=== PATIENT | female | born 1990 | race Caucasian/White ===

== ENCOUNTER 2018-01-26 01:55 | Inpatient (IN) | payer OTHER ==
[2018-01-26] MEDS ORDERED: Misoprostol 100 MCG Tab VAG PRN (07:22)
[2018-01-26] MEDS ORDERED: Nalbuphine 20 MG/ML 1 ML Syringe IVPUSH PRN (07:22)
[2018-01-26] MEDS ORDERED: Sodium Chloride 0.9% 10 ML Syringe FLUSH PRN (07:22)
[2018-01-26] MEDS ORDERED: Ondansetron 4 MG/2 ML SDV IVPUSH PRN (07:22)
[2018-01-26] MEDS ORDERED: Oxytocin/Lactated Ringers 10 UNIT/1,000 ML BAG IV SCH ×2 (07:30)
[2018-01-26] MEDS: Misoprostol 25 MCG (1/4 of 100 MCG) Tab ONE ×2 (07:36→11:27)
[2018-01-26] MEDS ORDERED: fentaNYL 100 MCG/2 ML SDV EPIDUR PRN (09:35)
[2018-01-26] MEDS ORDERED: Bupivacaine/fentaNYL/NS 100 ML Bag EPIDUR SCH (09:45)
[2018-01-26] MEDS ORDERED: Misoprostol 25 MCG (1/4 of 100 MCG) Tab ONE (11:24)
[2018-01-26] MEDS ORDERED: Misoprostol 25 MCG (1/4 of 100 MCG) Tab VAG PRN (11:32)
--- NOTE | 2018-01-26 11:50 | PCM.PREANE ---
Preanesthetic Assessment - Anesthesia/Transfusion/Family Hx Anesthesia History: Prior Anesthesia Without Reaction Family History of Anesthesia Reaction: No Transfusion History: No Prior Transfusion(s) - Review of Systems General: No Symptoms Pulmonary: No Symptoms Cardiovascular: No Symptoms Gastrointestinal: No Symptoms Neurological: No Symptoms Other: Reports: None - Physical Assessment Pulse: 76 O2 Sat by Pulse Oximetry: 97 Respiratory Rate: 18 Blood Pressure: 171/94 Temperature: 36.5 C Height: 1.65 m Weight: 72.575 kg ASA Class: 2 Mental Status: Alert & Oriented x3 Airway Class: Mallampati = 1 Dentition: Reports: Normal Dentition Thyro-Mental Finger Breadths: 3 Mouth Opening Finger Breadths: 3 ROM/Head Extension: Full Lungs: Clear to Auscultation, Normal Respiratory Effort Cardiovascular: Regular Rate, Regular Rhythm, No Murmurs - Lab Values: Laboratory Last Values WBC 11.99 K/mm3 (3.98-10.04) H 01/26/18 07:45 RBC 4.23 M/mm3 (3.98-5.22) 01/26/18 07:45 Hgb 12.6 gm/L (11.2-15.7) 01/26/18 07:45 Hct 37.1 % (34.1-44.9) 01/26/18 07:45 MCV 87.7 fl (79.4-94.8) 01/26/18 07:45 MCH 29.8 pg (25.6-32.2) 01/26/18 07:45 MCHC 34.0 g/dl (32.2-35.5) 01/26/18 07:45 RDW Std Deviation 43.5 fL (36.4-46.3) 01/26/18 07:45 Plt Count 135 K/mm3 (182-369) L 01/26/18 07:45 MPV 11.6 fl (9.4-12.3) 01/26/18 07:45 AST 23 U/L (15-37) 01/26/18 07:45 ALT 23 U/L (14-59) 01/26/18 07:45 Blood Type O POSITIVE 01/26/18 07:45 Gel Antibody Screen Negative 01/26/18 07:45 - Allergies Allergies/Adverse Reactions: Allergies Allergy/AdvReac Type Severity Reaction Status Date / Time No Known Allergies Allergy Verified 01/26/18 07:56 - Anesthesia Plan Pre-Op Medication Ordered: None - Acknowledgements Anesthesia Type Planned: Epidural Pt an Appropriate Candidate for the Planned Anesthesia: Yes Alternatives and Risks of Anesthesia Discussed w Pt/Guardian: Yes Pt/Guardian Understands and Agrees with Anesthesia Plan: Yes PreAnesthesia Questionnaire Gastrointestinal History: Reports: GERD PSYCHOLOGICAL OPERATIONS History: Reports: - SUBSTANCE USE Smoking Status *Q: Current Every Day Smoker Tobacco Use Within Last Twelve Months: Cigarettes Second Hand Smoke Exposure: No Recreational Drug Use History: No - HOME MEDS Home Medications: Home Meds Pnv No.95/Ferrous Fum/Folic AC [ Multivitamin Tablet] 1 tab PO DAILY [History] - CURRENT (IN HOUSE) MEDS Current Meds: Current Medications Ephedrine Sulfate (Ephedrine Sulfate) 5 mg IVPUSH ASDIRECTED PRN PRN Reason: HYPOTENTSION Fentanyl (Sublimaze) 100 mcg EPIDUR Q3H PRN PRN Reason: Pain Fentanyl/Bupivacaine HCl (Fentanyl/Bupivacaine/Ns 2 Mcg-0.125% 100 Ml) 100 ml EPIDUR ASDIRECTED KONSTANTIN Lactated Ringer's (Ringers, Lactated) 1,000 mls @ 40 mls/hr IV ASDIRECTED KONSTANTIN Oxytocin/Lactated Ringer's (Pitocin In Lr 10 Units/1,000 Ml) 10 unit in 1,000 mls @ 12 mls/hr IV TITRATE KONSTANTIN; Protocol Oxytocin/Lactated Ringer's (Pitocin In Lr 10 Units/1,000 Ml) 10 unit in 1,000 mls @ 500 mls/hr IV .CONTINUOUS KONSTANTIN Misoprostol (Cytotec) 25 mcg VAG Q4H PRN PRN Reason: cervical ripening Nalbuphine HCl (Nubain) 10 mg IVPUSH Q2H PRN PRN Reason: Pain (moderate 4-6) Ondansetron HCl (Zofran) 4 mg IVPUSH Q4H PRN PRN Reason: Nausea/Vomiting Sodium Chloride (Saline Flush) 10 ml FLUSH ASDIRECTED PRN PRN Reason: Keep Vein Open Discontinued Medications Misoprostol (Cytotec) 25 mcg VAG Q4H PRN PRN Reason: cervical ripening Misoprostol (Cytotec) Confirm Administered Dose 25 mcg .ROUTE .STK-MED ONE Stop: 01/26/18 07:35 Last Admin: 01/26/18 11:27 Dose: 25 mcg Misoprostol (Cytotec) Confirm Administered Dose 25 mcg .ROUTE .[facility] ONE Stop: 01/26/18 11:25
[2018-01-26] MEDS ORDERED: Magnesium Sulfate/Water 100 ML ONE (13:26)
[2018-01-26] MEDS ORDERED: Magnesium Sulfate/Water 50 ML ONE (13:26)
[2018-01-26] MEDS ORDERED: Calcium Gluconate 10% 1 GM/10 ML SDV IV PRN (13:30)
[2018-01-26] MEDS ORDERED: Magnesium Sulfate/Water 4 GM in Premix Bag 1 BAG IV ONE (13:30)
[2018-01-26] MEDS ORDERED: Magnesium Sulfate/Water 2 GM in Premix Bag 1 BAG IV ONE (13:30)
--- NOTE | 2018-01-26 13:38 | PCM.PNLD ---
Labor Progress Note - VS & Meds Vital Signs: Last Vital Signs Temp 36.5 C 01/26/18 11:50 Pulse 76 01/26/18 11:50 Resp 18 01/26/18 11:50 BP 171/94 H 01/26/18 11:50 Pulse Ox 97 01/26/18 11:50 Active Medications: Current Medications Calcium Gluconate (Calcium Gluconate) 1 gm IV ASDIRECTED PRN PRN Reason: respiratory distress Ephedrine Sulfate (Ephedrine Sulfate) 5 mg IVPUSH ASDIRECTED PRN PRN Reason: HYPOTENTSION Fentanyl (Sublimaze) 100 mcg EPIDUR Q3H PRN PRN Reason: Pain Fentanyl/Bupivacaine HCl (Fentanyl/Bupivacaine/Ns 2 Mcg-0.125% 100 Ml) 100 ml EPIDUR ASDIRECTED KONSTANTIN Lactated Ringer's (Ringers, Lactated) 1,000 mls @ 40 mls/hr IV ASDIRECTED KONSTANTIN Oxytocin/Lactated Ringer's (Pitocin In Lr 10 Units/1,000 Ml) 10 unit in 1,000 mls @ 12 mls/hr IV TITRATE KONSTANTIN; Protocol Oxytocin/Lactated Ringer's (Pitocin In Lr 10 Units/1,000 Ml) 10 unit in 1,000 mls @ 500 mls/hr IV .CONTINUOUS KONSTANTIN Magnesium Sulfate (Magnesium Sulfate 40 Gm In Water 1000 Ml) 40 gm in 1,000 mls @ 50 mls/hr IV ASDIRECTED KONSTANTIN Magnesium Sulfate 4 gm/ Premix 100 mls @ 300 mls/hr IV ONETIME ONE Stop: 01/26/18 13:49 Magnesium Sulfate 2 gm/ Premix 50 mls @ 300 mls/hr IV ONETIME ONE Stop: 01/26/18 13:39 Misoprostol (Cytotec) 25 mcg VAG Q4H PRN PRN Reason: cervical ripening Nalbuphine HCl (Nubain) 10 mg IVPUSH Q2H PRN PRN Reason: Pain (moderate 4-6) Ondansetron HCl (Zofran) 4 mg IVPUSH Q4H PRN PRN Reason: Nausea/Vomiting Sodium Chloride (Saline Flush) 10 ml FLUSH ASDIRECTED PRN PRN Reason: Keep Vein Open Discontinued Medications Magnesium Sulfate (Magnesium Sulfate 4 Gm In Water 100 Ml) Confirm Administered Dose 100 mls @ as directed .ROUTE .STK-MED ONE Stop: 01/26/18 13:27 Magnesium Sulfate (Magnesium Sulfate 2 Gm In Water 50 Ml) Confirm Administered Dose 50 mls @ as directed .ROUTE .STK-MED ONE Stop: 01/26/18 13:27 Misoprostol (Cytotec) 25 mcg VAG Q4H PRN PRN Reason: cervical ripening Misoprostol (Cytotec) Confirm Administered Dose 25 mcg .ROUTE .STK-MED ONE Stop: 01/26/18 07:35 Last Admin: 01/26/18 11:27 Dose: 25 mcg Misoprostol (Cytotec) Confirm Administered Dose 25 mcg .ROUTE .STK-MED ONE Stop: 01/26/18 11:25 Last Admin: 01/26/18 13:18 Dose: Not Given - Uterine Contractions Uterine Monitoring Mode: External [place] Contraction Intensity: Mild to Moderate - Monitoring Monitor Mode: External Ultrasound Heart Rate (FHR) Baseline: 130 Accelerations: Present, 15x15 Decelerations: None Strip Review: Category I - Labor Progress (Free Text) Labor Progress: Patient with more severe range BP's. Will start magnesium for preeclampsia with severe features. Possible need for additional anti-hypertensives depending upon response. 2nd cytotec dose placed around 1130. Urrutia bulb remains in place
[2018-01-26] MEDS: Lactated Ringers 1,000 ML IV SCH ×2 (13:41→23:30)
[2018-01-26] MEDS: Magnesium Sulfate/Water 40 GM/1,000 ML BAG IV SCH (14:20)
[2018-01-26] MEDS ORDERED: Labetalol 100 MG/20 ML MDV IVPUSH ONE (14:39)
[2018-01-26] MEDS ORDERED: Ampicillin 2 GM in Sodium Chloride 0.9% 100 ML IV ONE (16:11)
--- NOTE | 2018-01-26 17:15 | PCM.PNLD ---
Labor Progress Note - VS & Meds Vital Signs: Last Vital Signs Temp 36.5 C 01/26/18 11:50 Pulse 92 01/26/18 14:49 Resp 18 01/26/18 11:50 BP 160/106 H 01/26/18 14:49 Pulse Ox 97 01/26/18 11:50 Active Medications: Current Medications Calcium Gluconate (Calcium Gluconate) 1 gm IV ASDIRECTED PRN PRN Reason: respiratory distress Ephedrine Sulfate (Ephedrine Sulfate) 5 mg IVPUSH ASDIRECTED PRN PRN Reason: HYPOTENTSION Fentanyl (Sublimaze) 100 mcg EPIDUR Q3H PRN PRN Reason: Pain Fentanyl/Bupivacaine HCl (Fentanyl/Bupivacaine/Ns 2 Mcg-0.125% 100 Ml) 100 ml EPIDUR ASDIRECTED KONSTANTIN Lactated Ringer's (Ringers, Lactated) 1,000 mls @ 40 mls/hr IV ASDIRECTED KONSTANTIN Last Infusion: 01/26/18 17:01 Dose: 30 mls/hr Oxytocin/Lactated Ringer's (Pitocin In Lr 10 Units/1,000 Ml) 10 unit in 1,000 mls @ 12 mls/hr IV TITRATE KONSTANTIN; Protocol Last Titration: 01/26/18 17:01 Dose: 6 munits/min, 36 mls/hr Oxytocin/Lactated Ringer's (Pitocin In Lr 10 Units/1,000 Ml) 10 unit in 1,000 mls @ 500 mls/hr IV .CONTINUOUS KONSTANTIN Magnesium Sulfate (Magnesium Sulfate 40 Gm In Water 1000 Ml) 40 gm in 1,000 mls @ 50 mls/hr IV ASDIRECTED KONSTANTIN Last Admin: 01/26/18 14:20 Dose: 50 mls/hr Ampicillin Sodium 1 gm/ Sodium (Chloride) 100 mls @ 200 mls/hr IV Q4H KONSTANTIN Misoprostol (Cytotec) 25 mcg VAG Q4H PRN PRN Reason: cervical ripening Nalbuphine HCl (Nubain) 10 mg IVPUSH Q2H PRN PRN Reason: Pain (moderate 4-6) Ondansetron HCl (Zofran) 4 mg IVPUSH Q4H PRN PRN Reason: Nausea/Vomiting Sodium Chloride (Saline Flush) 10 ml FLUSH ASDIRECTED PRN PRN Reason: Keep Vein Open Discontinued Medications Magnesium Sulfate (Magnesium Sulfate 4 Gm In Water 100 Ml) Confirm Administered Dose 100 mls @ as directed .ROUTE .STK-MED ONE Stop: 01/26/18 13:27 Last Admin: 01/26/18 14:08 Dose: Not Given Magnesium Sulfate (Magnesium Sulfate 2 Gm In Water 50 Ml) Confirm Administered Dose 50 mls @ as directed .ROUTE .STK-MED ONE Stop: 01/26/18 13:27 Last Admin: 01/26/18 14:08 Dose: Not Given Magnesium Sulfate 4 gm/ Premix 100 mls @ 300 mls/hr IV ONETIME ONE Stop: 01/26/18 13:49 Last Admin: 01/26/18 13:44 Dose: 300 mls/hr Magnesium Sulfate 2 gm/ Premix 50 mls @ 300 mls/hr IV ONETIME ONE Stop: 01/26/18 13:39 Last Admin: 01/26/18 14:08 Dose: 300 mls/hr Ampicillin Sodium 2 gm/ Sodium (Chloride) 100 mls @ 200 mls/hr IV ONETIME ONE Stop: 01/26/18 16:40 Last Admin: 01/26/18 16:27 Dose: 200 mls/hr Labetalol HCl (Normodyne) 20 mg IVPUSH ONETIME ONE; Protocol Stop: 01/26/18 14:40 Last Admin: 01/26/18 14:49 Dose: 20 mg Misoprostol (Cytotec) 25 mcg VAG Q4H PRN PRN Reason: cervical ripening Misoprostol (Cytotec) Confirm Administered Dose 25 mcg .ROUTE .STK-MED ONE Stop: 01/26/18 07:35 Last Admin: 01/26/18 11:27 Dose: 25 mcg Misoprostol (Cytotec) Confirm Administered Dose 25 mcg .ROUTE .STK-MED ONE Stop: 01/26/18 11:25 Last Admin: 01/26/18 13:18 Dose: Not Given - Uterine Contractions Uterine Monitoring Mode: External [place] Contraction Intensity: Moderate Uterine Resting Tone: Soft - Monitoring Monitor Mode: External Ultrasound Heart Rate (FHR) Baseline: 130 Heart Rate (FHR) Variability: Moderate (6-25 bmp) Accelerations: Present, 15x15 Decelerations: None Strip Review: Category I - Vaginal Exam Dilation (cm): 3-4 Effacement (Percent): 80 Station: -2 Cervical Position: Midposition - Labor Progress (Free Text) Labor Progress: Patient doing well. Currently on 6 of pitocin. BP's have come down with a dose of IV labetalol given at 1450. Now upper mild range. Continue present management. Will AROM after 2nd dose of antibiotics which will be given at 1999.
--- NOTE | 2018-01-26 18:15 | PCM.LDHP ---
L&D History of Present Illness - General Date of Service: 01/26/18 Admit Problem/Dx: Patient Status Order with Admit Dx/Problem 01/26/18 07:22 Patient Status [ADT] Routine Admission Diagnosis/Problem Admission Diagnosis/Problem Pre-eclampsia Source of Information: Patient History Limitations: Reports: No Limitations - History of Present Illness Introduction:: Patient is a 27 y/o at 37 0/7 wks who presents for IOL for preeclampsia without severe features. Notes doing well. Good FM. No signs of labor. Denies headaches, vision changes, RUQ pain. - Related Data Allergies/Adverse Reactions: Allergies Allergy/AdvReac Type Severity Reaction Status Date / Time No Known Allergies Allergy Verified 01/26/18 07:56 Home Medications: Home Meds Pnv No.95/Ferrous Fum/Folic AC [ Multivitamin Tablet] 1 tab PO DAILY [History] Past Medical History Gastrointestinal History: Reports: GERD PATCHER History: Reports: : 2 Para: 0 LMP (Approximate): - Past Surgical History Musculoskeletal Surgical History: Reports: Other (See Below) (Cyst excision from arm) Social & Family History - Family History Family Medical History: Noncontributory - Tobacco Use Smoking Status *Q: Current Every Day Smoker Years of Tobacco use: 8 Packs/Tins Daily: 1 Second Hand Smoke Exposure: No - Caffeine Use Caffeine Use: Reports: Coffee, Soda - Alcohol Use Alcohol Use History: No - Recreational Drug Use Recreational Drug Use: No H&P Review of Systems - Review of Systems: Review Of Systems: See Below General: Reports: No Symptoms Pulmonary: Reports: No Symptoms Cardiovascular: Reports: No Symptoms Gastrointestinal: Reports: No Symptoms Genitourinary: Reports: No Symptoms Musculoskeletal: Reports: No Symptoms Psychiatric: Reports: No Symptoms Neurological: Reports: No Symptoms L&D Exam - Exam Exam: See Below - Vital Signs Vital Signs: Last Vital Signs Temp 36.5 C 01/26/18 11:50 Pulse 92 01/26/18 14:49 Resp 18 01/26/18 11:50 BP 160/106 H 01/26/18 14:49 Pulse Ox 97 01/26/18 11:50 Weight: 72.575 kg - OB Specific Contraction Intensity: Irritability Movement: Active Heart Tones: Present Heart Tones per Min: 135 Heart Rate (FHR) Variability: Moderate (6-25 bmp) Presentation: Vertex - Baez Score Baez Score Cervix Position: Posterior Baez Score Consistency: Medium Baez Score Effacement: 0-30% Baez Score Dilation: Closed Baez Score Infant's Station: -3 Baez Score Total: 1 - Exam General: Alert, Oriented, Cooperative Lungs: Clear to Auscultation, Normal Respiratory Effort Cardiovascular: Regular Rate, Regular Rhythm GI/Abdominal Exam: Soft, Non-Tender Genitourinary: Normal external exam Extremities: Normal Inspection Skin: Warm, Dry, Intact Neurological: Reflexes Equal Bilateral - Patient Data Lab Results Last 24 hrs: Laboratory Results - last 24 hr 01/26/18 01/26/18 01/26/18 Range/Units 07:45 07:45 07:45 WBC 11.99 H (3.98-10.04) K/mm3 RBC 4.23 (3.98-5.22) M/mm3 Hgb 12.6 (11.2-15.7) gm/L Hct 37.1 (34.1-44.9) % MCV 87.7 (79.4-94.8) fl MCH 29.8 (25.6-32.2) pg MCHC 34.0 (32.2-35.5) g/dl RDW Std Deviation 43.5 (36.4-46.3) fL Plt Count 135 L (182-369) K/mm3 MPV 11.6 (9.4-12.3) fl AST 23 (15-37) U/L ALT 23 (14-59) U/L RPR Non-reactive (NONREACTIVE) Blood Type Gel Antibody Screen 01/26/18 Range/Units 07:45 WBC (3.98-10.04) K/mm3 RBC (3.98-5.22) M/mm3 Hgb (11.2-15.7) gm/L Hct (34.1-44.9) % MCV (79.4-94.8) fl MCH (25.6-32.2) pg MCHC (32.2-35.5) g/dl RDW Std Deviation (36.4-46.3) fL Plt Count (182-369) K/mm3 MPV (9.4-12.3) fl AST (15-37) U/L ALT (14-59) U/L RPR (NONREACTIVE) Blood Type O POSITIVE Gel Antibody Screen Negative Result Diagrams: 01/26/18 07:45 - Problem List (1) 37 weeks gestation of SNOMED Code(s): 05582849 ICD Code: Z3A.37 - 37 WEEKS GESTATION OF Status: Acute Current Visit: Yes (2) Preeclampsia SNOMED Code(s): 943156182 ICD Code: O14.90 - UNSPECIFIED PRE-ECLAMPSIA, UNSPECIFIED TRIMESTER Status : Acute Current Visit: Yes Qualifiers: Trimester: third trimester Qualified Code(s): O14.93 - Unspecified pre- eclampsia, third trimester (3) GBS (group B Streptococcus carrier), +RV culture, currently SNOMED Code(s): 9536811022230, 959212179, 2557400350470 ICD Code: O99.820 - STREPTOCOCCUS B CARRIER STATE COMPLICATING Status: Acute Current Visit: Yes Problem List Initiated/Reviewed/Updated: Yes Orders Last 24hrs: Active Orders 24 hr Category Date Time Status Patient Status [ADT] Routine ADT 01/26/18 07:22 Active Bedrest [RC] ASDIRECTED Care 01/26/18 13:30 Active Communication Order [RC] ASDIRECTED Care 01/26/18 07:22 Active Communication Order [RC] ASDIRECTED Care 01/26/18 07:22 Active Communication Order [RC] ASDIRECTED Care 01/26/18 07:22 Active Communication Order [RC] ASDIRECTED Care 01/26/18 09:35 Active Communication Order [RC] ASDIRECTED Care 01/26/18 13:30 Active Cooling Warming Measures [RC] ASDIRECTED Care 01/26/18 09:35 Active Heart Tones [RC] ASDIRECTED Care 01/26/18 07:23 Active Monitoring [RC] INTERMITTENT Care 01/26/18 07:22 Active Non Stress Test [RC] PER UNIT ROUTINE Care 01/26/18 07:22 Active Notify Provider Status Change [RC] ASDIRECTED Care 01/26/18 13:30 Active Notify Provider Vital Signs [RC] ASDIRECTED Care 01/26/18 13:30 Active Notify Provider [RC] ASDIRECTED Care 01/26/18 07:22 Active Notify Provider [RC] ASDIRECTED Care 01/26/18 09:35 Active Notify Provider [RC] ASDIRECTED Care 01/26/18 13:30 Active Notify Provider [RC] PRN Care 01/26/18 07:22 Active Oxygen Therapy [RC] ASDIRECTED Care 01/26/18 09:35 Active Peripheral IV Care [RC] . DIRECTED Care 01/26/18 07:23 Active Pulse Oximetry [RC] ASDIRECTED Care 01/26/18 09:35 Active Vaginal Exam [RC] ASDIRECTED Care 01/26/18 07:22 Active Verify Patient Consent Obtain [RC] ASDIRECTED Care 01/26/18 09:35 Active Vital Signs [RC] ASDIRECTED Care 01/26/18 07:22 Active Vital Signs [RC] Q4HR Care 01/26/18 09:35 Active Regular Diet [DIET] Diet 01/26/18 Breakfast Active Ampicillin 1 gm Med 01/26/18 20:00 Active Sodium Chloride 0.9% [Normal Saline] 100 ml IV Q4H Bupivacaine/fentaNYL/NS [fentaNYL/Bupivacaine/NS 2 MCG- Med 01/26/18 09:45 Active 0.125% 100 ML] 100 ml EPIDUR ASDIRECTED Calcium Gluconate Med 01/26/18 13:30 Active 1 gm IV ASDIRECTED PRN Lactated Ringers [Ringers, Lactated] 1,000 ml Med 01/26/18 07:30 Active IV ASDIRECTED Magnesium Sulfate/Water [Magnesium Sulfate 40 GM in Med 01/26/18 13:30 Active Water 1000 ML] 40 gm in 1,000 ml IV ASDIRECTED Nalbuphine [Nubain] Med 01/26/18 07:22 Active 10 mg IVPUSH Q2H PRN Ondansetron [Zofran] Med 01/26/18 07:22 Active 4 mg IVPUSH Q4H PRN Oxytocin/Lactated Ringers [Pitocin in LR 10 Units/1,000 Med 01/26/18 07:30 Active ML] 10 unit in 1,000 ml IV .CONTINUOUS Oxytocin/Lactated Ringers [Pitocin in LR 10 Units/1,000 Med 01/26/18 07:30 Active ML] 10 unit in 1,000 ml IV TITRATE Sodium Chloride 0.9% [Saline Flush] Med 01/26/18 07:22 Active 10 ml FLUSH ASDIRECTED PRN ePHEDrine [ePHEDrine Sulfate] Med 01/26/18 09:35 Active 5 mg IVPUSH ASDIRECTED PRN fentaNYL [Sublimaze] Med 01/26/18 09:35 Active 100 mcg EPIDUR Q3H PRN miSOPROStol [Cytotec] Med 01/26/18 11:32 Active 25 mcg VAG Q4H PRN Blood Pressure [OM.PC] ASDIRECTED Ot 01/26/18 13:30 Ordered Deep Tendon Reflexes [WOMSER] ASDIRECTED Ot 01/26/18 13:30 Ordered Electronic Heart Tones Ext w TOCO [WOMSER] Ot 01/26/18 07:22 Ordered Routine Electronic Heart Tones Internal [WOMSER] Per Unit Ot 01/26/18 07:22 Ordered Routine Medication Administration Instruction [OM.PC] Per Unit [facility] 01/26/18 13:32 Ordered Routine PIH Panel [OM.PC] Stat Ot 01/26/18 09:31 Ordered Peripheral IV Insertion Adult [OM.PC] Routine Ot 01/26/18 07:22 Ordered Peripheral IV Insertion Adult [OM.PC] Routine Ot 01/26/18 16:11 Ordered Resuscitation Status Routine Resus Stat 01/26/18 07:22 Ordered Medication Orders Calcium Gluconate (Calcium Gluconate) 1 gm IV ASDIRECTED PRN PRN Reason: respiratory distress Ephedrine Sulfate (Ephedrine Sulfate) 5 mg IVPUSH ASDIRECTED PRN PRN Reason: HYPOTENTSION Fentanyl (Sublimaze) 100 mcg EPIDUR Q3H PRN PRN Reason: Pain Fentanyl/Bupivacaine HCl (Fentanyl/Bupivacaine/Ns 2 Mcg-0.125% 100 Ml) 100 ml EPIDUR ASDIRECTED KONSTANTIN Lactated Ringer's (Ringers, Lactated) 1,000 mls @ 40 mls/hr IV ASDIRECTED KONSTANTIN Last Infusion: 01/26/18 17:01 Dose: 30 mls/hr Infusion: 01/26/18 16:32 Dose: 0 mls/hr Admin: 01/26/18 13:41 Dose: 40 mls/hr Oxytocin/Lactated Ringer's (Pitocin In Lr 10 Units/1,000 Ml) 10 unit in 1,000 mls @ 12 mls/hr IV TITRATE KONSTANTIN; Protocol Last Titration: 01/26/18 17:01 Dose: 6 munits/min, 36 mls/hr Titration: 01/26/18 16:32 Dose: 4 munits/min, 24 mls/hr Admin: 01/26/18 15:57 Dose: 2 munits/min, 12 mls/hr Oxytocin/Lactated Ringer's (Pitocin In Lr 10 Units/1,000 Ml) 10 unit in 1,000 mls @ 500 mls/hr IV .CONTINUOUS KONSTANTIN Magnesium Sulfate (Magnesium Sulfate 40 Gm In Water 1000 Ml) 40 gm in 1,000 mls @ 50 mls/hr IV ASDIRECTED KONSTANTIN Last Admin: 01/26/18 14:20 Dose: 50 mls/hr Ampicillin Sodium 1 gm/ Sodium (Chloride) 100 mls @ 200 mls/hr IV Q4H KONSTANTIN Misoprostol (Cytotec) 25 mcg VAG Q4H PRN PRN Reason: cervical ripening Nalbuphine HCl (Nubain) 10 mg IVPUSH Q2H PRN PRN Reason: Pain (moderate 4-6) Ondansetron HCl (Zofran) 4 mg IVPUSH Q4H PRN PRN Reason: Nausea/Vomiting Sodium Chloride (Saline Flush) 10 ml FLUSH ASDIRECTED PRN PRN Reason: Keep Vein Open Assessment/Plan Comment:: 27 y/o at 37 0/7 wks who presents for IOL for preeclampsia. Induction was to be for preeclampsia without severe features, however, initial BP severe range. Will continue monitor closely. Labs done and WNL. Urrutia bulb placed and cytotec inserted for IOL. Will start GBS prophlaxis when in more active labor. Pain management per patient preference. Anticipate
[2018-01-26] MEDS: Ampicillin 1 GM in Sodium Chloride 0.9% 100 ML IV SCH (20:04)
--- NOTE | 2018-01-26 20:16 | PCM.PNLD ---
Labor Progress Note - VS & Meds Vital Signs: Last Vital Signs Temp 36.5 C 01/26/18 11:50 Pulse 92 01/26/18 14:49 Resp 18 01/26/18 11:50 BP 160/106 H 01/26/18 14:49 Pulse Ox 97 01/26/18 11:50 Active Medications: Current Medications Calcium Gluconate (Calcium Gluconate) 1 gm IV ASDIRECTED PRN PRN Reason: respiratory distress Ephedrine Sulfate (Ephedrine Sulfate) 5 mg IVPUSH ASDIRECTED PRN PRN Reason: HYPOTENTSION Fentanyl (Sublimaze) 100 mcg EPIDUR Q3H PRN PRN Reason: Pain Fentanyl/Bupivacaine HCl (Fentanyl/Bupivacaine/Ns 2 Mcg-0.125% 100 Ml) 100 ml EPIDUR ASDIRECTED KONSTANTIN Lactated Ringer's (Ringers, Lactated) 1,000 mls @ 40 mls/hr IV ASDIRECTED KONSTANTIN Last Infusion: 01/26/18 19:28 Dose: 500 mls/hr Oxytocin/Lactated Ringer's (Pitocin In Lr 10 Units/1,000 Ml) 10 unit in 1,000 mls @ 12 mls/hr IV TITRATE KONSTANTIN; Protocol Last Titration: 01/26/18 18:00 Dose: 8 munits/min, 48 mls/hr Oxytocin/Lactated Ringer's (Pitocin In Lr 10 Units/1,000 Ml) 10 unit in 1,000 mls @ 500 mls/hr IV .CONTINUOUS KONSTANTIN Magnesium Sulfate (Magnesium Sulfate 40 Gm In Water 1000 Ml) 40 gm in 1,000 mls @ 50 mls/hr IV ASDIRECTED KONSTANTIN Last Admin: 01/26/18 14:20 Dose: 50 mls/hr Ampicillin Sodium 1 gm/ Sodium (Chloride) 100 mls @ 200 mls/hr IV Q4H KONSTANTIN Last Admin: 01/26/18 20:04 Dose: 200 mls/hr Misoprostol (Cytotec) 25 mcg VAG Q4H PRN PRN Reason: cervical ripening Nalbuphine HCl (Nubain) 10 mg IVPUSH Q2H PRN PRN Reason: Pain (moderate 4-6) Ondansetron HCl (Zofran) 4 mg IVPUSH Q4H PRN PRN Reason: Nausea/Vomiting Sodium Chloride (Saline Flush) 10 ml FLUSH ASDIRECTED PRN PRN Reason: Keep Vein Open Discontinued Medications Magnesium Sulfate (Magnesium Sulfate 4 Gm In Water 100 Ml) Confirm Administered Dose 100 mls @ as directed .ROUTE .STK-MED ONE Stop: 01/26/18 13:27 Last Admin: 01/26/18 14:08 Dose: Not Given Magnesium Sulfate (Magnesium Sulfate 2 Gm In Water 50 Ml) Confirm Administered Dose 50 mls @ as directed .ROUTE .STK-MED ONE Stop: 01/26/18 13:27 Last Admin: 01/26/18 14:08 Dose: Not Given Magnesium Sulfate 4 gm/ Premix 100 mls @ 300 mls/hr IV ONETIME ONE Stop: 01/26/18 13:49 Last Admin: 01/26/18 13:44 Dose: 300 mls/hr Magnesium Sulfate 2 gm/ Premix 50 mls @ 300 mls/hr IV ONETIME ONE Stop: 01/26/18 13:39 Last Admin: 01/26/18 14:08 Dose: 300 mls/hr Ampicillin Sodium 2 gm/ Sodium (Chloride) 100 mls @ 200 mls/hr IV ONETIME ONE Stop: 01/26/18 16:40 Last Admin: 01/26/18 16:27 Dose: 200 mls/hr Labetalol HCl (Normodyne) 20 mg IVPUSH ONETIME ONE; Protocol Stop: 01/26/18 14:40 Last Admin: 01/26/18 14:49 Dose: 20 mg Misoprostol (Cytotec) 25 mcg VAG Q4H PRN PRN Reason: cervical ripening Misoprostol (Cytotec) Confirm Administered Dose 25 mcg .ROUTE .STK-MED ONE Stop: 01/26/18 07:35 Last Admin: 01/26/18 11:27 Dose: 25 mcg Misoprostol (Cytotec) Confirm Administered Dose 25 mcg .ROUTE .STK-MED ONE Stop: 01/26/18 11:25 Last Admin: 01/26/18 13:18 Dose: Not Given - Uterine Contractions Uterine Monitoring Mode: External [place] Contraction Intensity: Moderate Uterine Resting Tone: Soft - Monitoring Monitor Mode: External Ultrasound Heart Rate (FHR) Baseline: 150 Heart Rate (FHR) Variability: Moderate (6-25 bmp) Accelerations: Present, 15x15 Decelerations: None Strip Review: Category I - Vaginal Exam Dilation (cm): 3-4 Effacement (Percent): 90 Station: -1 Cervical Position: Midposition - Labor Progress (Free Text) Labor Progress: Doing well. Pitocin at 8. Plans for epidural. AROM performed. BP's more upper limit of mild range. Will monitor closely through epidural and see if additional anti-hypertensives needed afterwards
[2018-01-26] MEDS: ePHEDrine 50 MG/ML SDV IVPUSH PRN ×4 (21:08→21:32)
--- NOTE | 2018-01-26 21:48 | PCM.SN ---
- Free Text/Narrative Note: 2129 After patient's epidural she had significant hypotension down to a low of 102/ 51. Baby with prolonged decelerations with this drop in BP. Patient's pitocin discontinued and ephedrine given x4 doses to improve to a 130/80's range. Will continue to watch closely. Repeat SVE in near future. Verenice Chen MD
[2018-01-26] MEDS ORDERED: Lidocaine 1% 2 ML SDV ONE (22:00)
[2018-01-26] MEDS ORDERED: Lidocaine 1.5% with EPINEPHrine 1:200,000 5 ML Amp ONE (22:00)
[2018-01-26] MEDS ORDERED: Bupivacaine 0.25% 10 ML SDV ONE (22:00)
--- NOTE | 2018-01-26 22:18 | PCM.PNLD ---
Labor Progress Note - VS & Meds Vital Signs: Last Vital Signs Temp 36.5 C 01/26/18 11:50 Pulse 92 01/26/18 14:49 Resp 18 01/26/18 11:50 BP 160/106 H 01/26/18 14:49 Pulse Ox 97 01/26/18 11:50 Active Medications: Current Medications Calcium Gluconate (Calcium Gluconate) 1 gm IV ASDIRECTED PRN PRN Reason: respiratory distress Ephedrine Sulfate (Ephedrine Sulfate) 5 mg IVPUSH ASDIRECTED PRN PRN Reason: HYPOTENTSION Last Admin: 01/26/18 21:08 Dose: 5 mg Fentanyl (Sublimaze) 100 mcg EPIDUR Q3H PRN PRN Reason: Pain Last Admin: 01/26/18 20:39 Dose: 100 mcg Fentanyl/Bupivacaine HCl (Fentanyl/Bupivacaine/Ns 2 Mcg-0.125% 100 Ml) 100 ml EPIDUR ASDIRECTED KONSTANTIN Last Admin: 01/26/18 20:40 Dose: 100 ml Lactated Ringer's (Ringers, Lactated) 1,000 mls @ 40 mls/hr IV ASDIRECTED KONSTANTIN Last Infusion: 01/26/18 21:40 Dose: 70 mls/hr Oxytocin/Lactated Ringer's (Pitocin In Lr 10 Units/1,000 Ml) 10 unit in 1,000 mls @ 12 mls/hr IV TITRATE KONSTANTIN; Protocol Last Titration: 01/26/18 21:22 Dose: 0 munits/min, 0 mls/hr Oxytocin/Lactated Ringer's (Pitocin In Lr 10 Units/1,000 Ml) 10 unit in 1,000 mls @ 500 mls/hr IV .CONTINUOUS KONSTANTIN Magnesium Sulfate (Magnesium Sulfate 40 Gm In Water 1000 Ml) 40 gm in 1,000 mls @ 50 mls/hr IV ASDIRECTED KONSTANTIN Last Admin: 01/26/18 14:20 Dose: 50 mls/hr Ampicillin Sodium 1 gm/ Sodium (Chloride) 100 mls @ 200 mls/hr IV Q4H KONSTANTIN Last Admin: 01/26/18 20:04 Dose: 200 mls/hr Misoprostol (Cytotec) 25 mcg VAG Q4H PRN PRN Reason: cervical ripening Nalbuphine HCl (Nubain) 10 mg IVPUSH Q2H PRN PRN Reason: Pain (moderate 4-6) Ondansetron HCl (Zofran) 4 mg IVPUSH Q4H PRN PRN Reason: Nausea/Vomiting Sodium Chloride (Saline Flush) 10 ml FLUSH ASDIRECTED PRN PRN Reason: Keep Vein Open Discontinued Medications Magnesium Sulfate (Magnesium Sulfate 4 Gm In Water 100 Ml) Confirm Administered Dose 100 mls @ as directed .ROUTE .STK-MED ONE Stop: 01/26/18 13:27 Last Admin: 01/26/18 14:08 Dose: Not Given Magnesium Sulfate (Magnesium Sulfate 2 Gm In Water 50 Ml) Confirm Administered Dose 50 mls @ as directed .ROUTE .STK-MED ONE Stop: 01/26/18 13:27 Last Admin: 01/26/18 14:08 Dose: Not Given Magnesium Sulfate 4 gm/ Premix 100 mls @ 300 mls/hr IV ONETIME ONE Stop: 01/26/18 13:49 Last Admin: 01/26/18 13:44 Dose: 300 mls/hr Magnesium Sulfate 2 gm/ Premix 50 mls @ 300 mls/hr IV ONETIME ONE Stop: 01/26/18 13:39 Last Admin: 01/26/18 14:08 Dose: 300 mls/hr Ampicillin Sodium 2 gm/ Sodium (Chloride) 100 mls @ 200 mls/hr IV ONETIME ONE Stop: 01/26/18 16:40 Last Admin: 01/26/18 16:27 Dose: 200 mls/hr Labetalol HCl (Normodyne) 20 mg IVPUSH ONETIME ONE; Protocol Stop: 01/26/18 14:40 Last Admin: 01/26/18 14:49 Dose: 20 mg Misoprostol (Cytotec) 25 mcg VAG Q4H PRN PRN Reason: cervical ripening Misoprostol (Cytotec) Confirm Administered Dose 25 mcg .ROUTE .STK-MED ONE Stop: 01/26/18 07:35 Last Admin: 01/26/18 11:27 Dose: 25 mcg Misoprostol (Cytotec) Confirm Administered Dose 25 mcg .ROUTE .STK-MED ONE Stop: 01/26/18 11:25 Last Admin: 01/26/18 13:18 Dose: Not Given - Uterine Contractions Uterine Monitoring Mode: External Kaleva Contraction Intensity: Moderate Uterine Resting Tone: Soft - Monitoring Monitor Mode: External Ultrasound Heart Rate (FHR) Baseline: 150 Heart Rate (FHR) Variability: Moderate (6-25 bmp) Accelerations: Present, 15x15 Decelerations: Early, Variable Strip Review: Category II - Vaginal Exam Dilation (cm): 5 Effacement (Percent): 90 Station: 0 Cervical Position: Midposition - Labor Progress (Free Text) Labor Progress: FHR improved. IUPC placed to allow re-initiation of pitocin. Continue present management
--- NOTE | 2018-01-26 23:51 | PCM.SN ---
- Free Text/Narrative Note: 2330 called to pt room to decrease epidural rate per Dr. Chen's request. Epidural working with a T8 level no complains of pain from patient. Drip decreased to 5ml/hr. out of room at 2333
[2018-01-27] MEDS: Ampicillin 1 GM in Sodium Chloride 0.9% 100 ML IV SCH (00:01)
--- NOTE | 2018-01-27 01:36 | PCM.DEL ---
L & D Note - General Info Date of Service: 01/27/18 - Delivery Note Labor: Induced by ARM, Induced by Oxytocin Cervical Ripening Method: Balloon Device, Misoprostil Delivery Outcome: Livebirth Delivery Method: Spontaneous Vaginal Delivery-Single Infant Delivery Mode: Spontaneous Presentation: Right Occiput Anterior (JARRET) Nuchal Cord: Present (tight and so not reduced) Anesthesia Type: Epidural Amniotic Fluid Description: Clear Episiotomy Type: None Laceration: None Placenta: Intact, Spontaneous Cord: 3 Vessels Estimated Blood Loss: 250 Resuscitation Needed: Yes [place]: Suctioned, Cathether, Stimulated, Warmed, [place] Used, Warmer Used Score 1 min: 7 Score 5 min: 8 Delivery Comments (Free Text/Narrative):: Patient found to be complete and began pushing. With maternal pushing effort head delivered from an JARRET presentation. Nuchal cord present, but tight and so not reduced. With gentle downward traction the shoulders and body delivered. Infant placed on maternal abdomen where cord was clamped and cut. Baby then taken to warmer. Cord blood collected. Placenta allowed time to separate and expelled intact. Inspection of the perineum showed no lacerations. - General Info Date of Service: 01/27/18 - Patient Data Vitals - Most Recent: Last Vital Signs Temp 36.5 C 01/26/18 11:50 Pulse 92 01/26/18 14:49 Resp 18 01/26/18 11:50 BP 160/106 H 01/26/18 14:49 Pulse Ox 97 01/26/18 11:50 Weight - Most Recent: 72.575 kg I&O - Last 24 Hours: Intake & Output 01/26/18 01/26/18 01/27/18 14:59 22:59 06:59 Intake Total 100 1100 Output Total 1475 225 Balance -1375 875 Lab Results Last 24 Hours: Laboratory Results - last 24 hr 01/26/18 01/26/18 01/26/18 Range/Units 07:45 07:45 07:45 WBC 11.99 H (3.98-10.04) K/mm3 RBC 4.23 (3.98-5.22) M/mm3 Hgb 12.6 (11.2-15.7) gm/L Hct 37.1 (34.1-44.9) % MCV 87.7 (79.4-94.8) fl MCH 29.8 (25.6-32.2) pg MCHC 34.0 (32.2-35.5) g/dl RDW Std Deviation 43.5 (36.4-46.3) fL Plt Count 135 L (182-369) K/mm3 MPV 11.6 (9.4-12.3) fl AST 23 (15-37) U/L ALT 23 (14-59) U/L RPR Non-reactive (NONREACTIVE) Blood Type Gel Antibody Screen 01/26/18 Range/Units 07:45 WBC (3.98-10.04) K/mm3 RBC (3.98-5.22) M/mm3 Hgb (11.2-15.7) gm/L Hct (34.1-44.9) % MCV (79.4-94.8) fl MCH (25.6-32.2) pg MCHC (32.2-35.5) g/dl RDW Std Deviation (36.4-46.3) fL Plt Count (182-369) K/mm3 MPV (9.4-12.3) fl AST (15-37) U/L ALT (14-59) U/L RPR (NONREACTIVE) Blood Type O POSITIVE Gel Antibody Screen Negative Med Orders - Current: Current Medications Calcium Gluconate (Calcium Gluconate) 1 gm IV ASDIRECTED PRN PRN Reason: respiratory distress Ephedrine Sulfate (Ephedrine Sulfate) 5 mg IVPUSH ASDIRECTED PRN PRN Reason: HYPOTENTSION Last Admin: 01/26/18 21:32 Dose: 5 mg Fentanyl (Sublimaze) 100 mcg EPIDUR Q3H PRN PRN Reason: Pain Last Admin: 01/26/18 20:39 Dose: 100 mcg Fentanyl/Bupivacaine HCl (Fentanyl/Bupivacaine/Ns 2 Mcg-0.125% 100 Ml) 100 ml EPIDUR ASDIRECTED KONSTANTIN Last Admin: 01/26/18 20:40 Dose: 100 ml Lactated Ringer's (Ringers, Lactated) 1,000 mls @ 40 mls/hr IV ASDIRECTED KONSTANTIN Last Infusion: 01/27/18 01:22 Dose: 0 mls/hr Oxytocin/Lactated Ringer's (Pitocin In Lr 10 Units/1,000 Ml) 10 unit in 1,000 mls @ 12 mls/hr IV TITRATE KONSTANTIN; Protocol Last Titration: 01/27/18 01:22 Dose: 500 mls/hr Oxytocin/Lactated Ringer's (Pitocin In Lr 10 Units/1,000 Ml) 10 unit in 1,000 mls @ 500 mls/hr IV .CONTINUOUS KONSTANTIN Magnesium Sulfate (Magnesium Sulfate 40 Gm In Water 1000 Ml) 40 gm in 1,000 mls @ 50 mls/hr IV ASDIRECTED KONSTANTIN Last Admin: 01/26/18 14:20 Dose: 50 mls/hr Ampicillin Sodium 1 gm/ Sodium (Chloride) 100 mls @ 200 mls/hr IV Q4H KONSTANTIN Last Admin: 01/27/18 00:01 Dose: 200 mls/hr Misoprostol (Cytotec) 25 mcg VAG Q4H PRN PRN Reason: cervical ripening Nalbuphine HCl (Nubain) 10 mg IVPUSH Q2H PRN PRN Reason: Pain (moderate 4-6) Ondansetron HCl (Zofran) 4 mg IVPUSH Q4H PRN PRN Reason: Nausea/Vomiting Sodium Chloride (Saline Flush) 10 ml FLUSH ASDIRECTED PRN PRN Reason: Keep Vein Open Discontinued Medications Magnesium Sulfate (Magnesium Sulfate 4 Gm In Water 100 Ml) Confirm Administered Dose 100 mls @ as directed .ROUTE .STK-MED ONE Stop: 01/26/18 13:27 Last Admin: 01/26/18 14:08 Dose: Not Given Magnesium Sulfate (Magnesium Sulfate 2 Gm In Water 50 Ml) Confirm Administered Dose 50 mls @ as directed .ROUTE .STK-MED ONE Stop: 01/26/18 13:27 Last Admin: 01/26/18 14:08 Dose: Not Given Magnesium Sulfate 4 gm/ Premix 100 mls @ 300 mls/hr IV ONETIME ONE Stop: 01/26/18 13:49 Last Admin: 01/26/18 13:44 Dose: 300 mls/hr Magnesium Sulfate 2 gm/ Premix 50 mls @ 300 mls/hr IV ONETIME ONE Stop: 01/26/18 13:39 Last Admin: 01/26/18 14:08 Dose: 300 mls/hr Ampicillin Sodium 2 gm/ Sodium (Chloride) 100 mls @ 200 mls/hr IV ONETIME ONE Stop: 01/26/18 16:40 Last Admin: 01/26/18 16:27 Dose: 200 mls/hr Labetalol HCl (Normodyne) 20 mg IVPUSH ONETIME ONE; Protocol Stop: 01/26/18 14:40 Last Admin: 01/26/18 14:49 Dose: 20 mg Misoprostol (Cytotec) 25 mcg VAG Q4H PRN PRN Reason: cervical ripening Misoprostol (Cytotec) Confirm Administered Dose 25 mcg .ROUTE .STK-MED ONE Stop: 01/26/18 07:35 Last Admin: 01/26/18 11:27 Dose: 25 mcg Misoprostol (Cytotec) Confirm Administered Dose 25 mcg .ROUTE .STK-MED ONE Stop: 01/26/18 11:25 Last Admin: 01/26/18 13:18 Dose: Not Given - Problem List & Annotations (1) 37 weeks gestation of SNOMED Code(s): 27578162 Code(s): Z3A.37 - 37 WEEKS GESTATION OF Status: Acute Current Visit: Yes (2) Preeclampsia SNOMED Code(s): 323433627 Code(s): O14.90 - UNSPECIFIED PRE-ECLAMPSIA, UNSPECIFIED TRIMESTER Status: Acute Current Visit: Yes Qualifiers: Trimester: third trimester Qualified Code(s): O14.93 - Unspecified pre- eclampsia, third trimester (3) GBS (group B Streptococcus carrier), +RV culture, currently SNOMED Code(s): 0578792629641, 897235181, 4514213990742 Code(s): O99.820 - STREPTOCOCCUS B CARRIER STATE COMPLICATING Status: Acute Current Visit: Yes (4) Vaginal delivery SNOMED Code(s): 262797502 Code(s): O80 - ENCOUNTER FOR FULL-TERM UNCOMPLICATED DELIVERY Status: Acute Current Visit: Yes - Problem List Review Problem List Initiated/Reviewed/Updated: Yes - My Orders Last 24 Hours: My Active Orders 01/26/18 07:22 Patient Status [ADT] Routine Communication Order [RC] ASDIRECTED Communication Order [RC] ASDIRECTED Communication Order [RC] ASDIRECTED Monitoring [RC] INTERMITTENT Non Stress Test [RC] PER UNIT ROUTINE Notify Provider [RC] ASDIRECTED Notify Provider [RC] PRN Vaginal Exam [RC] ASDIRECTED Vital Signs [RC] ASDIRECTED Nalbuphine [Nubain] 10 mg IVPUSH Q2H PRN Ondansetron [Zofran] 4 mg IVPUSH Q4H PRN Sodium Chloride 0.9% [Saline Flush] 10 ml FLUSH ASDIRECTED PRN Electronic Heart Tones Ext w TOCO [WOMSER] Routine Electronic Heart Tones Internal [WOMSER] Per Unit Routine Peripheral IV Insertion Adult [OM.PC] Routine Resuscitation Status Routine 01/26/18 07:23 Heart Tones [RC] ASDIRECTED Peripheral IV Care [RC] . DIRECTED 01/26/18 07:30 Lactated Ringers [Ringers, Lactated] 1,000 ml IV ASDIRECTED Oxytocin/Lactated Ringers [Pitocin in LR 10 Units/1,000 ML] 10 unit in 1,000 ml IV .CONTINUOUS Oxytocin/Lactated Ringers [Pitocin in LR 10 Units/1,000 ML] 10 unit in 1,000 ml IV TITRATE 01/26/18 09:31 PIH Panel [OM.PC] Stat 01/26/18 11:32 miSOPROStol [Cytotec] 25 mcg VAG Q4H PRN 01/26/18 13:30 Bedrest [RC] ASDIRECTED Communication Order [RC] ASDIRECTED Notify Provider Status Change [RC] ASDIRECTED Notify Provider Vital Signs [RC] ASDIRECTED Notify Provider [RC] ASDIRECTED Calcium Gluconate 1 gm IV ASDIRECTED PRN Magnesium Sulfate/Water [Magnesium Sulfate 40 GM in Water 1000 ML] 40 gm in 1, 000 ml IV ASDIRECTED Blood Pressure [OM.PC] ASDIRECTED Deep Tendon Reflexes [WOMSER] ASDIRECTED 01/26/18 13:32 Medication Administration Instruction [OM.PC] Per Unit Routine 01/26/18 16:11 Peripheral IV Insertion Adult [OM.PC] Routine 01/26/18 20:00 Ampicillin 1 gm Sodium Chloride 0.9% [Normal Saline] 100 ml IV Q4H 01/26/18 22:25 Urinary Catheter Assessment [RC] ASDIRECTED 01/26/18 22:30 Insert Urrutia Catheter [Insert Urinary Catheter] [OM.PC] Q24H 01/26/18 Breakfast Regular Diet [DIET] - Assessment Assessment:: 27 y/o G2 now P1011 PPD#0 from at 37 1/7 wks gestation - Plan Plan:: after IOL for Severe Preeclampsia * Routine cares * Encourage breast feeding * Continue magnesium for 24 hours * Strict I&O's * BP's hourly with reflex checks * Discharge home in 2 days
[2018-01-27] MEDS ORDERED: Witch Hazel Medicated Pads 100/Jar TOP PRN (02:23)
[2018-01-27] MEDS ORDERED: Acetaminophen 325 MG Tab PO PRN (02:23)
[2018-01-27] MEDS ORDERED: Lanolin 100% Cream 7 GM Tube TOP PRN (02:23)
[2018-01-27] MEDS ORDERED: Benzocaine/Menthol 20%-0.5% Spray 56 GM Canister TOP PRN (02:23)
[2018-01-27] MEDS ORDERED: Docusate Sodium 100 MG Cap PO PRN (02:23)
[2018-01-27] MEDS: Ibuprofen 600 MG Tab PO PRN ×2 (02:44→19:58)
[2018-01-27] MEDS: Magnesium Sulfate/Water 40 GM/1,000 ML BAG IV SCH (09:22)
--- NOTE | 2018-01-27 09:43 | PCM48HPAN ---
Post Anesthesia Note - EVALUATION WITHIN 48HRS OF ANESTHETIC Vital Signs in Normal Range: Yes Patient Participated in Evaluation: Yes Respiratory Function Stable: Yes Airway Patent: Yes Cardiovascular Function Stable: Yes Hydration Status Stable: Yes Pain Control Satisfactory: Yes Nausea and Vomiting Control Satisfactory: Yes Mental Status Recovered: Yes - COMMENTS/OBSERVATIONS Free Text/Narrative:: Patient denies any headaches, back pain, residual numbness or tingling to LE.
[2018-01-28] MEDS ORDERED: Magnesium Sulfate/Water 40 GM/1,000 ML BAG IV SCH (01:20)
--- NOTE | 2018-01-28 10:57 | PCM.DCSUM1 ---
Discharge Summary - Hospital Course Free Text/Narrative:: [facility] LIVE L/D Delivery Note Patient Name: AGUSTÍN MERCADO Date of : 89 Patient Status: Inpatient Attending Provider: Verenice Chen Date: 01/27/18 01:34 Initialization Date: 01/27/18 01:34 L & D Note - General Info Date of Service: 01/27/18 - Delivery Note Labor: Induced by ARM, Induced by Oxytocin Cervical Ripening Method: Balloon Device, Misoprostil Delivery Outcome: Livebirth Delivery Method: Spontaneous Vaginal Delivery-Single Infant Delivery Mode: Spontaneous Presentation: Right Occiput Anterior (JARRET) Nuchal Cord: Present (tight and so not reduced) Anesthesia Type: Epidural Amniotic Fluid Description: Clear Episiotomy Type: None Laceration: None Placenta: Intact, Spontaneous Cord: 3 Vessels Estimated Blood Loss: 250 Resuscitation Needed: Yes : Suctioned, Cathether, Stimulated, Warmed, Stanhope Used, Warmer Used Score 1 min: 7 Score 5 min: 8 Delivery Comments (Free Text/Narrative):: Patient found to be complete and began pushing. With maternal pushing effort head delivered from an JARRET presentation. Nuchal cord present, but tight and so not reduced. With gentle downward traction the shoulders and body delivered. Infant placed on maternal abdomen where cord was clamped and cut. Baby then taken to warmer. Cord blood collected. Placenta allowed time to separate and expelled intact. Inspection of the perineum showed no lacerations. - General Info Date of Service: 01/27/18 - Patient Data Vitals - Most Recent: Last Vital Signs Temp 36.5 C 01/26/18 11:50 Pulse 92 01/26/18 14:49 Resp 18 01/26/18 11:50 BP 160/106 H 01/26/18 14:49 Pulse Ox 97 01/26/18 11:50 Weight - Most Recent: 72.575 kg I&O - Last 24 Hours: Intake & Output 01/26/18 01/26/18 01/27/18 14:59 22:59 06:59 Intake Total 100 1100 Output Total 1475 225 Balance -1375 875 Lab Results Last 24 Hours: Laboratory Results - last 24 hr 01/26/18 01/26/18 01/26/18 Range/Units 07:45 07:45 07:45 WBC 11.99 H (3.98-10.04) K/mm3 RBC 4.23 (3.98-5.22) M/mm3 Hgb 12.6 (11.2-15.7) gm/L Hct 37.1 (34.1-44.9) % MCV 87.7 (79.4-94.8) fl MCH 29.8 (25.6-32.2) pg MCHC 34.0 (32.2-35.5) g/dl RDW Std Deviation 43.5 (36.4-46.3) fL Plt Count 135 L (182-369) K/mm3 MPV 11.6 (9.4-12.3) fl AST 23 (15-37) U/L ALT 23 (14-59) U/L RPR Non-reactive (NONREACTIVE) Blood Type Gel Antibody Screen 01/26/18 Range/Units 07:45 WBC (3.98-10.04) K/mm3 RBC (3.98-5.22) M/mm3 Hgb (11.2-15.7) gm/L Hct (34.1-44.9) % MCV (79.4-94.8) fl MCH (25.6-32.2) pg MCHC (32.2-35.5) g/dl RDW Std Deviation (36.4-46.3) fL Plt Count (182-369) K/mm3 MPV (9.4-12.3) fl AST (15-37) U/L ALT (14-59) U/L RPR (NONREACTIVE) Blood Type O POSITIVE Gel Antibody Screen Negative Med Orders - Current: Current Medications Calcium Gluconate (Calcium Gluconate) 1 gm IV ASDIRECTED PRN PRN Reason: respiratory distress Ephedrine Sulfate (Ephedrine Sulfate) 5 mg IVPUSH ASDIRECTED PRN PRN Reason: HYPOTENTSION Last Admin: 01/26/18 21:32 Dose: 5 mg Fentanyl (Sublimaze) 100 mcg EPIDUR Q3H PRN PRN Reason: Pain Last Admin: 01/26/18 20:39 Dose: 100 mcg Fentanyl/Bupivacaine HCl (Fentanyl/Bupivacaine/Ns 2 Mcg-0.125% 100 Ml) 100 ml EPIDUR ASDIRECTED [facility] Last Admin: 01/26/18 20:40 Dose: 100 ml Lactated Ringer's (Ringers, Lactated) 1,000 mls @ 40 mls/hr IV ASDIRECTED [facility] Last Infusion: 01/27/18 01:22 Dose: 0 mls/hr Oxytocin/Lactated Ringer's (Pitocin In Lr 10 Units/1,000 Ml) 10 unit in 1,000 mls @ 12 mls/hr IV TITRATE KONSTANTIN; Protocol Last Titration: 01/27/18 01:22 Dose: 500 mls/hr Oxytocin/Lactated Ringer's (Pitocin In Lr 10 Units/1,000 Ml) 10 unit in 1,000 mls @ 500 mls/hr IV .CONTINUOUS KONSTANTIN Magnesium Sulfate (Magnesium Sulfate 40 Gm In Water 1000 Ml) 40 gm in 1,000 mls @ 50 mls/hr IV ASDIRECTED [facility] Last Admin: 01/26/18 14:20 Dose: 50 mls/hr Ampicillin Sodium 1 gm/ Sodium (Chloride) 100 mls @ 200 mls/hr IV Q4H [facility] Last Admin: 01/27/18 00:01 Dose: 200 mls/hr Misoprostol (Cytotec) 25 mcg VAG Q4H PRN PRN Reason: cervical ripening Nalbuphine HCl (Nubain) 10 mg IVPUSH Q2H PRN PRN Reason: Pain (moderate 4-6) Ondansetron HCl (Zofran) 4 mg IVPUSH Q4H PRN PRN Reason: Nausea/Vomiting Sodium Chloride (Saline Flush) 10 ml FLUSH ASDIRECTED PRN PRN Reason: Keep Vein Open Discontinued Medications Magnesium Sulfate (Magnesium Sulfate 4 Gm In Water 100 Ml) Confirm Administered Dose 100 mls @ as directed .ROUTE .STK-MED ONE Stop: 01/26/18 13:27 Last Admin: 01/26/18 14:08 Dose: Not Given Magnesium Sulfate (Magnesium Sulfate 2 Gm In Water 50 Ml) Confirm Administered Dose 50 mls @ as directed .ROUTE .STK-MED ONE Stop: 01/26/18 13:27 Last Admin: 01/26/18 14:08 Dose: Not Given Magnesium Sulfate 4 gm/ Premix 100 mls @ 300 mls/hr IV ONETIME ONE Stop: 01/26/18 13:49 Last Admin: 01/26/18 13:44 Dose: 300 mls/hr Magnesium Sulfate 2 gm/ Premix 50 mls @ 300 mls/hr IV ONETIME ONE Stop: 01/26/18 13:39 Last Admin: 01/26/18 14:08 Dose: 300 mls/hr Ampicillin Sodium 2 gm/ Sodium (Chloride) 100 mls @ 200 mls/hr IV ONETIME ONE Stop: 01/26/18 16:40 Last Admin: 01/26/18 16:27 Dose: 200 mls/hr Labetalol HCl (Normodyne) 20 mg IVPUSH ONETIME ONE; Protocol Stop: 01/26/18 14:40 Last Admin: 01/26/18 14:49 Dose: 20 mg Misoprostol (Cytotec) 25 mcg VAG Q4H PRN PRN Reason: cervical ripening Misoprostol (Cytotec) Confirm Administered Dose 25 mcg .ROUTE .STK-MED ONE Stop: 01/26/18 07:35 Last Admin: 01/26/18 11:27 Dose: 25 mcg Misoprostol (Cytotec) Confirm Administered Dose 25 mcg .ROUTE .STK-MED ONE Stop: 01/26/18 11:25 Last Admin: 01/26/18 13:18 Dose: Not Given - Problem List & Annotations (1) 37 weeks gestation of SNOMED Code(s): 39545078 Code(s): Z3A.37 - 37 WEEKS GESTATION OF Status: Acute Current Visit: Yes (2) Preeclampsia SNOMED Code(s): 172626260 Code(s): O14.90 - UNSPECIFIED PRE-ECLAMPSIA, UNSPECIFIED TRIMESTER Status: Acute Current Visit: Yes Qualifiers: Trimester: third trimester Qualified Code(s): O14.93 - Unspecified pre- eclampsia, third trimester (3) GBS (group B Streptococcus carrier), +RV culture, currently SNOMED Code(s): 9453335934115, 805699225, 3130198897646 Code(s): O99.820 - STREPTOCOCCUS B CARRIER STATE COMPLICATING Status: Acute Current Visit: Yes (4) Vaginal delivery SNOMED Code(s): 718231312 Code(s): O80 - ENCOUNTER FOR FULL-TERM UNCOMPLICATED DELIVERY Status: Acute Current Visit: Yes - Problem List Review Problem List Initiated/Reviewed/Updated: Yes - My Orders Last 24 Hours: My Active Orders 01/26/18 07:22 Patient Status [ADT] Routine Communication Order [RC] ASDIRECTED Communication Order [RC] ASDIRECTED Communication Order [RC] ASDIRECTED Monitoring [RC] INTERMITTENT Non Stress Test [RC] PER UNIT ROUTINE Notify Provider [RC] ASDIRECTED Notify Provider [RC] PRN Vaginal Exam [RC] ASDIRECTED Vital Signs [RC] ASDIRECTED Nalbuphine [Nubain] 10 mg IVPUSH Q2H PRN Ondansetron [Zofran] 4 mg IVPUSH Q4H PRN Sodium Chloride 0.9% [Saline Flush] 10 ml FLUSH ASDIRECTED PRN Electronic Heart Tones Ext w TOCO [WOMSER] Routine Electronic Heart Tones Internal [WOMSER] Per Unit Routine Peripheral IV Insertion Adult [OM.PC] Routine Resuscitation Status Routine 01/26/18 07:23 Heart Tones [RC] ASDIRECTED Peripheral IV Care [RC] . DIRECTED 01/26/18 07:30 Lactated Ringers [Ringers, Lactated] 1,000 ml IV ASDIRECTED Oxytocin/Lactated Ringers [Pitocin in LR 10 Units/1,000 ML] 10 unit in 1,000 ml IV .CONTINUOUS Oxytocin/Lactated Ringers [Pitocin in LR 10 Units/1,000 ML] 10 unit in 1,000 ml IV TITRATE 01/26/18 09:31 PIH Panel [OM.PC] Stat 01/26/18 11:32 miSOPROStol [Cytotec] 25 mcg VAG Q4H PRN 01/26/18 13:30 Bedrest [RC] ASDIRECTED Communication Order [RC] ASDIRECTED Notify Provider Status Change [RC] ASDIRECTED Notify Provider Vital Signs [RC] ASDIRECTED Notify Provider [RC] ASDIRECTED Calcium Gluconate 1 gm IV ASDIRECTED PRN Magnesium Sulfate/Water [Magnesium Sulfate 40 GM in Water 1000 ML] 40 gm in 1, 000 ml IV ASDIRECTED Blood Pressure [OM.PC] ASDIRECTED Deep Tendon Reflexes [WOMSER] ASDIRECTED 01/26/18 13:32 Medication Administration Instruction [OM.PC] Per Unit Routine 01/26/18 16:11 Peripheral IV Insertion Adult [OM.PC] Routine 01/26/18 20:00 Ampicillin 1 gm Sodium Chloride 0.9% [Normal Saline] 100 ml IV Q4H 01/26/18 22:25 Urinary Catheter Assessment [RC] ASDIRECTED 01/26/18 22:30 Insert Urrutia Catheter [Insert Urinary Catheter] [OM.PC] Q24H 01/26/18 Breakfast Regular Diet [DIET] - Assessment Assessment:: 27 y/o G2 now P1011 PPD#0 from at 37 1/7 wks gestation - Plan Plan:: after IOL for Severe Preeclampsia * Routine cares * Encourage breast feeding * Continue magnesium for 24 hours * Strict I&O's * BP's hourly with reflex checks * Discharge home in 2 days HPI Initial Comments: [facility] LIVE L/D Delivery Note Patient Name: AGUSTÍN MERCADO Date of : 89 Patient Status: Inpatient Attending Provider: Verenice Chen Date: 01/27/18 01:34 Initialization Date: 01/27/18 01:34 L & D Note - General Info Date of Service: 01/27/18 - Delivery Note Labor: Induced by ARM, Induced by Oxytocin Cervical Ripening Method: Balloon Device, Misoprostil Delivery Outcome: Livebirth Infant Delivery Method: Spontaneous Vaginal Delivery-Single Delivery Mode: Spontaneous Presentation: Right Occiput Anterior (JARRET) Nuchal Cord: Present (tight and so not reduced) Anesthesia Type: Epidural Amniotic Fluid Description: Clear Episiotomy Type: None Laceration: None Placenta: Intact, Spontaneous Cord: 3 Vessels Estimated Blood Loss: 250 Resuscitation Needed: Yes : Suctioned, Cathether, Stimulated, Warmed, [place] Used, Warmer Used Score 1 min: 7 Score 5 min: 8 Delivery Comments (Free Text/Narrative):: Patient found to be complete and began pushing. With maternal pushing effort head delivered from an JARRET presentation. Nuchal cord present, but tight and so not reduced. With gentle downward traction the shoulders and body delivered. Infant placed on maternal abdomen where cord was clamped and cut. Baby then taken to warmer. Cord blood collected. Placenta allowed time to separate and expelled intact. Inspection of the perineum showed no lacerations. - General Info Date of Service: 01/27/18 - Patient Data Vitals - Most Recent: Last Vital Signs Temp 36.5 C 01/26/18 11:50 Pulse 92 01/26/18 14:49 Resp 18 01/26/18 11:50 BP 160/106 H 01/26/18 14:49 Pulse Ox 97 01/26/18 11:50 Weight - Most Recent: 72.575 kg I&O - Last 24 Hours: Intake & Output 01/26/18 01/26/18 01/27/18 14:59 22:59 06:59 Intake Total 100 1100 Output Total 1475 225 Balance -1375 875 Lab Results Last 24 Hours: Laboratory Results - last 24 hr 01/26/18 01/26/18 01/26/18 Range/Units 07:45 07:45 07:45 WBC 11.99 H (3.98-10.04) K/mm3 RBC 4.23 (3.98-5.22) M/mm3 Hgb 12.6 (11.2-15.7) gm/L Hct 37.1 (34.1-44.9) % MCV 87.7 (79.4-94.8) fl MCH 29.8 (25.6-32.2) pg MCHC 34.0 (32.2-35.5) g/dl RDW Std Deviation 43.5 (36.4-46.3) fL Plt Count 135 L (182-369) K/mm3 MPV 11.6 (9.4-12.3) fl AST 23 (15-37) U/L ALT 23 (14-59) U/L RPR Non-reactive (NONREACTIVE) Blood Type Gel Antibody Screen 01/26/18 Range/Units 07:45 WBC (3.98-10.04) K/mm3 RBC (3.98-5.22) M/mm3 Hgb (11.2-15.7) gm/L Hct (34.1-44.9) % MCV (79.4-94.8) fl MCH (25.6-32.2) pg MCHC (32.2-35.5) g/dl RDW Std Deviation (36.4-46.3) fL Plt Count (182-369) K/mm3 MPV (9.4-12.3) fl AST (15-37) U/L ALT (14-59) U/L RPR (NONREACTIVE) Blood Type O POSITIVE Gel Antibody Screen Negative Med Orders - Current: Current Medications Calcium Gluconate (Calcium Gluconate) 1 gm IV ASDIRECTED PRN PRN Reason: respiratory distress Ephedrine Sulfate (Ephedrine Sulfate) 5 mg IVPUSH ASDIRECTED PRN PRN Reason: HYPOTENTSION Last Admin: 01/26/18 21:32 Dose: 5 mg Fentanyl (Sublimaze) 100 mcg EPIDUR Q3H PRN PRN Reason: Pain Last Admin: 01/26/18 20:39 Dose: 100 mcg Fentanyl/Bupivacaine HCl (Fentanyl/Bupivacaine/Ns 2 Mcg-0.125% 100 Ml) 100 ml EPIDUR ASDIRECTED [facility] Last Admin: 01/26/18 20:40 Dose: 100 ml Lactated Ringer's (Ringers, Lactated) 1,000 mls @ 40 mls/hr IV ASDIRECTED [facility] Last Infusion: 01/27/18 01:22 Dose: 0 mls/hr Oxytocin/Lactated Ringer's (Pitocin In Lr 10 Units/1,000 Ml) 10 unit in 1,000 mls @ 12 mls/hr IV TITRATE KONSTANTIN; Protocol Last Titration: 01/27/18 01:22 Dose: 500 mls/hr Oxytocin/Lactated Ringer's (Pitocin In Lr 10 Units/1,000 Ml) 10 unit in 1,000 mls @ 500 mls/hr IV .CONTINUOUS KONSTANTIN Magnesium Sulfate (Magnesium Sulfate 40 Gm In Water 1000 Ml) 40 gm in 1,000 mls @ 50 mls/hr IV ASDIRECTED [facility] Last Admin: 01/26/18 14:20 Dose: 50 mls/hr Ampicillin Sodium 1 gm/ Sodium (Chloride) 100 mls @ 200 mls/hr IV Q4H [facility] Last Admin: 01/27/18 00:01 Dose: 200 mls/hr Misoprostol (Cytotec) 25 mcg VAG Q4H PRN PRN Reason: cervical ripening Nalbuphine HCl (Nubain) 10 mg IVPUSH Q2H PRN PRN Reason: Pain (moderate 4-6) Ondansetron HCl (Zofran) 4 mg IVPUSH Q4H PRN PRN Reason: Nausea/Vomiting Sodium Chloride (Saline Flush) 10 ml FLUSH ASDIRECTED PRN PRN Reason: Keep Vein Open Discontinued Medications Magnesium Sulfate (Magnesium Sulfate 4 Gm In Water 100 Ml) Confirm Administered Dose 100 mls @ as directed .ROUTE .STK-MED ONE Stop: 01/26/18 13:27 Last Admin: 01/26/18 14:08 Dose: Not Given Magnesium Sulfate (Magnesium Sulfate 2 Gm In Water 50 Ml) Confirm Administered Dose 50 mls @ as directed .ROUTE .STK-MED ONE Stop: 01/26/18 13:27 Last Admin: 01/26/18 14:08 Dose: Not Given Magnesium Sulfate 4 gm/ Premix 100 mls @ 300 mls/hr IV ONETIME ONE Stop: 01/26/18 13:49 Last Admin: 01/26/18 13:44 Dose: 300 mls/hr Magnesium Sulfate 2 gm/ Premix 50 mls @ 300 mls/hr IV ONETIME ONE Stop: 01/26/18 13:39 Last Admin: 01/26/18 14:08 Dose: 300 mls/hr Ampicillin Sodium 2 gm/ Sodium (Chloride) 100 mls @ 200 mls/hr IV ONETIME ONE Stop: 01/26/18 16:40 Last Admin: 01/26/18 16:27 Dose: 200 mls/hr Labetalol HCl (Normodyne) 20 mg IVPUSH ONETIME ONE; Protocol Stop: 01/26/18 14:40 Last Admin: 01/26/18 14:49 Dose: 20 mg Misoprostol (Cytotec) 25 mcg VAG Q4H PRN PRN Reason: cervical ripening Misoprostol (Cytotec) Confirm Administered Dose 25 mcg .ROUTE .STK-MED ONE Stop: 01/26/18 07:35 Last Admin: 01/26/18 11:27 Dose: 25 mcg Misoprostol (Cytotec) Confirm Administered Dose 25 mcg .ROUTE .STK-MED ONE Stop: 01/26/18 11:25 Last Admin: 01/26/18 13:18 Dose: Not Given - Problem List & Annotations (1) 37 weeks gestation of SNOMED Code(s): 84406745 Code(s): Z3A.37 - 37 WEEKS GESTATION OF Status: Acute Current Visit: Yes (2) Preeclampsia SNOMED Code(s): 118068164 Code(s): O14.90 - UNSPECIFIED PRE-ECLAMPSIA, UNSPECIFIED TRIMESTER Status: Acute Current Visit: Yes Qualifiers: Trimester: third trimester Qualified Code(s): O14.93 - Unspecified pre- eclampsia, third trimester (3) GBS (group B Streptococcus carrier), +RV culture, currently SNOMED Code(s): 0617887635795, 933835531, 8557940196538 Code(s): O99.820 - STREPTOCOCCUS B CARRIER STATE COMPLICATING Status: Acute Current Visit: Yes (4) Vaginal delivery SNOMED Code(s): 831600503 Code(s): O80 - ENCOUNTER FOR FULL-TERM UNCOMPLICATED DELIVERY Status: Acute Current Visit: Yes - Problem List Review Problem List Initiated/Reviewed/Updated: Yes - My Orders Last 24 Hours: My Active Orders 01/26/18 07:22 Patient Status [ADT] Routine Communication Order [RC] ASDIRECTED Communication Order [RC] ASDIRECTED Communication Order [RC] ASDIRECTED Monitoring [RC] INTERMITTENT Non Stress Test [RC] PER UNIT ROUTINE Notify Provider [RC] ASDIRECTED Notify Provider [RC] PRN Vaginal Exam [RC] ASDIRECTED Vital Signs [RC] ASDIRECTED Nalbuphine [Nubain] 10 mg IVPUSH Q2H PRN Ondansetron [Zofran] 4 mg IVPUSH Q4H PRN Sodium Chloride 0.9% [Saline Flush] 10 ml FLUSH ASDIRECTED PRN Electronic Heart Tones Ext w TOCO [WOMSER] Routine Electronic Heart Tones Internal [WOMSER] Per Unit Routine Peripheral IV Insertion Adult [OM.PC] Routine Resuscitation Status Routine 01/26/18 07:23 Heart Tones [RC] ASDIRECTED Peripheral IV Care [RC] . DIRECTED 01/26/18 07:30 Lactated Ringers [Ringers, Lactated] 1,000 ml IV ASDIRECTED Oxytocin/Lactated Ringers [Pitocin in LR 10 Units/1,000 ML] 10 unit in 1,000 ml IV .CONTINUOUS Oxytocin/Lactated Ringers [Pitocin in LR 10 Units/1,000 ML] 10 unit in 1,000 ml IV TITRATE 01/26/18 09:31 PIH Panel [OM.PC] Stat 01/26/18 11:32 miSOPROStol [Cytotec] 25 mcg VAG Q4H PRN 01/26/18 13:30 Bedrest [RC] ASDIRECTED Communication Order [RC] ASDIRECTED Notify Provider Status Change [RC] ASDIRECTED Notify Provider Vital Signs [RC] ASDIRECTED Notify Provider [RC] ASDIRECTED Calcium Gluconate 1 gm IV ASDIRECTED PRN Magnesium Sulfate/Water [Magnesium Sulfate 40 GM in Water 1000 ML] 40 gm in 1, 000 ml IV ASDIRECTED Blood Pressure [OM.PC] ASDIRECTED Deep Tendon Reflexes [WOMSER] ASDIRECTED 01/26/18 13:32 Medication Administration Instruction [OM.PC] Per Unit Routine 01/26/18 16:11 Peripheral IV Insertion Adult [OM.PC] Routine 01/26/18 20:00 Ampicillin 1 gm Sodium Chloride 0.9% [Normal Saline] 100 ml IV Q4H 01/26/18 22:25 Urinary Catheter Assessment [RC] ASDIRECTED 01/26/18 22:30 Insert Urrutia Catheter [Insert Urinary Catheter] [OM.PC] Q24H 01/26/18 Breakfast Regular Diet [DIET] - Assessment Assessment:: 27 y/o G2 now P1011 PPD#0 from at 37 1/7 wks gestation - Plan Plan:: after IOL for Severe Preeclampsia * Routine cares * Encourage breast feeding * Continue magnesium for 24 hours * Strict I&O's * BP's hourly with reflex checks * Discharge home in 2 days Brief History: [facility] LIVE . L/D Delivery Note. Patient Name: AGUSTÍN MERCADO Record Number: [id number]. Date of : Patient Status: Inpatient. Attending Provider: Verenice Chenunt Number : [id number]. Date: 01/27/18 01:34Initialization Date: 01/27/18 01:34. L & D Note. - General Info. Date of Service: 01/27/18. - Delivery Note. Labor: Induced by ARM, Induced by Oxytocin. Cervical Ripening Method: Balloon Device, Misoprostil. Delivery Outcome: Livebirth. Infant Delivery Method: Spontaneous Vaginal Delivery-Single. Infant Delivery Mode: Spontaneous. Presentation : Right Occiput Anterior (JARRET). Nuchal Cord: Present (tight and so not reduced) . Anesthesia Type: Epidural. Amniotic Fluid Description: Clear. Episiotomy Type: None. Laceration: None. Placenta: Intact, Spontaneous. Cord: 3 Vessels. Estimated Blood Loss: 250. Resuscitation Needed: Yes. : Suctioned, Cathether, Stimulated, Warmed, [place] Used, Warmer Used. Score 1 min: 7. Score 5 min: 8. Delivery Comments (Free Text/Narrative): : Patient found to be complete and began pushing. With maternal pushing effort head delivered from an JARRET presentation. Nuchal cord present, but tight and so not reduced. With gentle downward traction the shoulders and body delivered. Infant placed on maternal abdomen where cord was clamped and cut. Baby then taken to warmer. Cord blood collected. Placenta allowed time to separate and expelled intact. Inspection of the perineum showed no lacerations. - General Info. Date of Service: 01/27/18. - Patient Data. Vitals - Most Recent: Last Vital Signs. Temp 36.5 C 01/26/18 11:50. Pulse 92 01/26/18 14:49. Resp 18 01/26/18 11:50. BP 160/106 H 01/26/18 14:49. Pulse Ox 97 01/26/18 11:50. Weight - Most Recent: 72.575 kg. I&O - Last 24 Hours: Intake & Output. 01/26/1807/. 14:5922:5906:59. Intake [id number]. Output [id number]. [id number]. Lab Results Last 24 Hours : Laboratory Results - last 24 hr. 01/26/1807Range/Units. 07: 4507:4507:45. WBC 11.99 H (3.98-10.04) K/mm3. RBC 4.23 (3.98-5.22) M/mm3. Hgb 12.6 (11.2-15.7) gm/L. Hct 37.1 (34.1-44.9) %. MCV 87.7 (79.4-94.8) fl. MCH 29.8 (25.6-32.2) pg. MCHC 34.0 (32.2-35.5) g/dl. RDW Std Deviation 43.5 (36.4-46.3) fL. Plt Count 135 L (182-369) K/mm3. MPV 11.6 (9.4-12.3) fl. AST 23 (15-37) U/L. ALT 23 (14-59) U/L. RPR Non-reactive (NONREACTIVE) . Blood Type. Gel Antibody Screen. 01/26/18Range/Units. 07:45. WBC (3.98- 10.04) K/mm3. RBC (3.98-5.22) M/mm3. Hgb (11.2-15.7) gm/L. Hct (34.1-44.9 ) %. MCV (79.4-94.8) fl. MCH (25.6-32.2) pg. MCHC (32.2-35.5) g/dl. RDW Std Deviation (36.4-46.3) fL. Plt Count (182-369) K/mm3. MPV (9.4-12.3) fl. AST (15-37) U/L. ALT (14-59) U/L. RPR (NONREACTIVE). Blood Type O POSITIVE. Gel Antibody Screen Negative. Med Orders - Current: Current Medications. Calcium Gluconate (Calcium Gluconate) 1 gm IV ASDIRECTED PRN. PRN Reason: respiratory distress. Ephedrine Sulfate (Ephedrine Sulfate) 5 mg IVPUSH ASDIRECTED PRN. PRN Reason: HYPOTENTSION. Last Admin: 01/26/18 21:32 Dose: 5 mg. Fentanyl (Sublimaze) 100 mcg EPIDUR Q3H PRN. PRN Reason: Pain. Last Admin: 01/26/18 20:39 Dose: 100 mcg. Fentanyl/Bupivacaine HCl (Fentanyl/ Bupivacaine/Ns 2 Mcg-0.125% 100 Ml) 100 ml EPIDUR ASDIRECTED [facility]. Last Admin: 01/26/18 20:40 Dose: 100 ml. Lactated Ringer's (Ringers, Lactated) 1,000 mls @ 40 mls/hr IV ASDIRECTED [facility]. Last Infusion: 01/27/18 01:22 Dose: 0 mls/hr. Oxytocin/Lactated Ringer's (Pitocin In Lr 10 Units/1,000 Ml) 10 unit in 1,000 mls @ 12 mls/hr IV TITRATE KONSTANTIN; Protocol. Last Titration: 01/27/18 01:22 Dose: 500 mls/hr. Oxytocin/Lactated Ringer's (Pitocin In Lr 10 Units/1,000 Ml) 10 unit in 1,000 mls @ 500 mls/hr IV .CONTINUOUS KONSTANTIN. Magnesium Sulfate ( Magnesium Sulfate 40 Gm In Water 1000 Ml) 40 gm in 1,000 mls @ 50 mls/hr IV ASDIRECTED [facility]. Last Admin: 01/26/18 14:20 Dose: 50 mls/hr. Ampicillin Sodium 1 gm/ Sodium (Chloride) 100 mls @ 200 mls/hr IV Q4H [facility]. Last Admin: 00:01 Dose: 200 mls/hr. Misoprostol (Cytotec) 25 mcg VAG Q4H PRN. PRN Reason: cervical ripening. Nalbuphine HCl (Nubain) 10 mg IVPUSH Q2H PRN. PRN Reason: Pain (moderate 4-6). Ondansetron HCl (Zofran) 4 mg IVPUSH Q4H PRN. PRN Reason: Nausea/Vomiting. Sodium Chloride (Saline Flush) 10 ml FLUSH ASDIRECTED PRN. PRN Reason: Keep Vein Open. Discontinued Medications. Magnesium Sulfate (Magnesium Sulfate 4 Gm In Water 100 Ml) Confirm Administered Dose 100 mls @ as directed .ROUTE .STK-MED ONE. Stop: 01/26/18 13:27. Last Admin: 01/26/18 14:08 Dose: Not Given. Magnesium Sulfate (Magnesium Sulfate 2 Gm In Water 50 Ml) Confirm Administered Dose 50 mls @ as directed .ROUTE .STK- MED ONE. Stop: 01/26/18 13:27. Last Admin: 01/26/18 14:08 Dose: Not Given. Magnesium Sulfate 4 gm/ Premix 100 mls @ 300 mls/hr IV ONETIME ONE. Stop: 13:49. Last Admin: 01/26/18 13:44 Dose: 300 mls/hr. Magnesium Sulfate 2 gm/ Premix 50 mls @ 300 mls/hr IV ONETIME ONE. Stop: 01/26/18 13:39. Last Admin: 01/26/18 14:08 Dose: 300 mls/hr. Ampicillin Sodium 2 gm/ Sodium ( Chloride) 100 mls @ 200 mls/hr IV ONETIME ONE. Stop: 01/26/18 16:40. Last Admin: 01/26/18 16:27 Dose: 200 mls/hr. Labetalol HCl (Normodyne) 20 mg IVPUSH ONETIME ONE; Protocol. Stop: 01/26/18 14:40. Last Admin: 01/26/18 14: 49 Dose: 20 mg. Misoprostol (Cytotec) 25 mcg VAG Q4H PRN. PRN Reason: cervical ripening. Misoprostol (Cytotec) Confirm Administered Dose 25 mcg .ROUTE .STK-MED ONE. Stop: 01/26/18 07:35. Last Admin: 01/26/18 11:27 Dose: 25 mcg. Misoprostol (Cytotec) Confirm Administered Dose 25 mcg .ROUTE .STK-MED ONE. Stop: 01/26/18 11:25. Last Admin: 01/26/18 13:18 Dose: Not Given. - Problem List & Annotations. (1) 37 weeks gestation of . SNOMED Code(s ): 83733202. Code(s): Z3A.37 - 37 WEEKS GESTATION OF Status: Acute Current Visit: Yes. (2) Preeclampsia. SNOMED Code(s): 682032735. Code(s): O14.90 - UNSPECIFIED PRE-ECLAMPSIA, UNSPECIFIED TRIMESTER Status: Acute Current Visit: Yes. Qualifiers: Trimester: third trimester Qualified Code(s) : O14.93 - Unspecified pre-eclampsia, third trimester. (3) GBS (group B Streptococcus carrier), +RV culture, currently . SNOMED Code(s): 3859494172760, 031422021, 9720021826366. Code(s): O99.820 - STREPTOCOCCUS B CARRIER STATE COMPLICATING Status: Acute Current Visit: Yes. (4) Vaginal delivery. SNOMED Code(s): 654126467. Code(s): O80 - ENCOUNTER FOR FULL -TERM UNCOMPLICATED DELIVERY Status: Acute Current Visit: Yes. - Problem List Review. Problem List Initiated/Reviewed/Updated: Yes. - My Orders. Last 24 Hours: My Active Orders. 01/26/18 07:22. Patient Status [ADT] Routine. Communication Order [RC] ASDIRECTED. Communication Order [RC] ASDIRECTED. Communication Order [RC] ASDIRECTED. Monitoring [RC] INTERMITTENT. Non Stress Test [RC] PER UNIT ROUTINE. Notify Provider [RC] ASDIRECTED. Notify Provider [RC] PRN. Vaginal Exam [RC] ASDIRECTED. Vital Signs [RC] ASDIRECTED. Nalbuphine [Nubain] 10 mg IVPUSH Q2H PRN. Ondansetron [Zofran] 4 mg IVPUSH Q4H PRN. Sodium Chloride 0.9% [Saline Flush] 10 ml FLUSH ASDIRECTED PRN. Electronic Heart Tones Ext w TOCO [WOMSER] Routine. Electronic Heart Tones Internal [WOMSER] Per Unit Routine. Peripheral IV Insertion Adult [OM.PC] Routine. Resuscitation Status Routine. 01/26/18 07: 23. Heart Tones [RC] ASDIRECTED. Peripheral IV Care [RC] . DIRECTED. 01/26/18 07:30. Lactated Ringers [Ringers, Lactated] 1,000 ml IV ASDIRECTED. Oxytocin/Lactated Ringers [Pitocin in LR 10 Units/1,000 ML] 10 unit in 1,000 ml IV .CONTINUOUS. Oxytocin/Lactated Ringers [Pitocin in LR 10 Units/1,000 ML] 10 unit in 1,000 ml IV TITRATE. 01/26/18 09:31. PIH Panel [OM.PC] Stat. 11:32. miSOPROStol [Cytotec] 25 mcg VAG Q4H PRN. 01/26/18 13:30. Bedrest [RC] ASDIRECTED. Communication Order [RC] ASDIRECTED. Notify Provider Status Change [RC] ASDIRECTED. Notify Provider Vital Signs [RC] ASDIRECTED. Notify Provider [RC] ASDIRECTED. Calcium Gluconate 1 gm IV ASDIRECTED PRN. Magnesium Sulfate/Water [Magnesium Sulfate 40 GM in Water 1000 ML] 40 gm in 1, 000 ml IV ASDIRECTED. Blood Pressure [OM.PC] ASDIRECTED. Deep Tendon Reflexes [WOMSER] ASDIRECTED. 01/26/18 13:32. Medication Administration Instruction [ OM.PC] Per Unit Routine. 01/26/18 16:11. Peripheral IV Insertion Adult [OM.PC ] Routine. 01/26/18 20:00. Ampicillin 1 gm Sodium Chloride 0.9% [Normal Saline] 100 ml IV Q4H. 01/26/18 22:25. Urinary Catheter Assessment [RC] ASDIRECTED. 01/26/18 22:30. Insert Urrutia Catheter [Insert Urinary Catheter] [ OM.PC] Q24H. 01/26/18 Breakfast. Regular Diet [DIET]. - Assessment. Assessment:: 27 y/o G2 now P1011 PPD#0 from at 37 1/7 wks gestation. - Plan. Plan:: after IOL for Severe Preeclampsia. Routine cares. Encourage breast feeding. Continue magnesium for 24 hours. Strict I&O's. BP' s hourly with reflex checks. Discharge home in 2 days Diagnosis: Stroke: No - Discharge Data Discharge Date: 01/28/18 Discharge Disposition: Home, Self-Care 01 Condition: Good - Patient Summary/Data Complications: None, blood pressure remained stable throughout the night and magnesium sulfate discontinued just after midnight this morning. Consults: None Hospital Course: Uneventful - Patient Instructions Diet: Regular Diet as Tolerated Driving: Do Not Drive (48 hours) Showering/Bathing: May Shower Notify Provider of: Fever, Increased Pain, Swelling and Redness, Drainage, Nausea and/or Vomiting - Discharge Plan *PRESCRIPTION DRUG MONITORING PROGRAM REVIEWED*: Not Applicable *COPY OF PRESCRIPTION DRUG MONITORING REPORT IN PATIENT CAT: Not Applicable Home Medications: Home Meds Pnv No.[id number]/Ferrous Fum/Folic AC [ Multivitamin Tablet] 1 tab PO DAILY [History] Acetaminophen [Tylenol] 650 mg PO Q4H PRN tablet 01/28/18 [Rx] Benzocaine/Menthol [Dermoplast Pain Relief [place]] 1 spray TOP ASDIRECTED PRN canister 01/28/18 [Rx] Docusate Sodium [Colace] 100 mg PO BID PRN cap 01/28/18 [Rx] Ibuprofen [Motrin] 600 mg PO Q6H PRN tablet 01/28/18 [Rx] Lanolin [Lansinoh HPA] 1 applic TOP ASDIRECTED PRN tube 01/28/18 [Rx] Witch Marybel [Tucks] 1 pad TOP ASDIRECTED PRN pad 01/28/18 [Rx] Referrals: Verenice Chen MD [Primary Care Provider] - (Will call Tuesday for an appointment to be seen next week.) - Discharge Summary/Plan Comment DC Time >30 min.: No - Patient Data Vitals - Most Recent: Last Vital Signs Temp 98.1 F 01/28/18 06:34 Pulse 66 01/28/18 06:34 Resp 16 01/28/18 06:34 BP 122/90 01/28/18 06:34 Pulse Ox 100 01/28/18 06:34 Weight - Most Recent: 160 lb I&O - Last 24 hours: Intake & Output 01/27/18 01/28/18 01/28/18 22:59 06:59 14:59 Intake Total 1370 805 Output Total 1500 800 Balance -130 5 Med Orders - Current: Current Medications Acetaminophen (Tylenol) 650 mg PO Q4H PRN PRN Reason: mild pain or fever Benzocaine/Menthol (Dermoplast Pain Relief [place]) 0 gm TOP ASDIRECTED PRN PRN Reason: Perineal Comfort Measure Last Admin: 01/27/18 02:44 Dose: 1 applic Calcium Gluconate (Calcium Gluconate) 1 gm IV ASDIRECTED PRN PRN Reason: respiratory distress Docusate Sodium (Colace) 100 mg PO BID PRN PRN Reason: Constipation Emollient Ointment (Lansinoh Hpa) 0 gm TOP ASDIRECTED PRN PRN Reason: Sore Nipples Ibuprofen (Motrin) 600 mg PO Q6H PRN PRN Reason: Mild pain or fever Last Admin: 01/27/18 19:58 Dose: 600 mg Witch Marybel (Tucks) 1 pad TOP ASDIRECTED PRN PRN Reason: Hemorrhoid pain Last Admin: 01/27/18 02:44 Dose: 1 applic Discontinued Medications Bupivacaine HCl (Sensorcaine-Mpf 0.25%) 10 ml .ROUTE .STK-MED ONE Stop: 01/26/18 22:01 Ephedrine Sulfate (Ephedrine Sulfate) 5 mg IVPUSH ASDIRECTED PRN PRN Reason: HYPOTENTSION Last Admin: 01/26/18 21:32 Dose: 5 mg Fentanyl (Sublimaze) 100 mcg EPIDUR Q3H PRN PRN Reason: Pain Last Admin: 01/26/18 20:39 Dose: 100 mcg Fentanyl/Bupivacaine HCl (Fentanyl/Bupivacaine/Ns 2 Mcg-0.125% 100 Ml) 100 ml EPIDUR ASDIRECTED KONSTANTIN Last Admin: 01/26/18 20:40 Dose: 100 ml Lactated Ringer's (Ringers, Lactated) 1,000 mls @ 40 mls/hr IV ASDIRECTED KONSTANTIN Last Infusion: 01/27/18 02:26 Dose: 40 mls/hr Oxytocin/Lactated Ringer's (Pitocin In Lr 10 Units/1,000 Ml) 10 unit in 1,000 mls @ 12 mls/hr IV TITRATE KONSTANTIN; Protocol Last Titration: 01/27/18 01:22 Dose: 500 mls/hr Oxytocin/Lactated Ringer's (Pitocin In Lr 10 Units/1,000 Ml) 10 unit in 1,000 mls @ 500 mls/hr IV .CONTINUOUS KONSTANTIN Magnesium Sulfate (Magnesium Sulfate 4 Gm In Water 100 Ml) Confirm Administered Dose 100 mls @ as directed .ROUTE .STK-MED ONE Stop: 01/26/18 13:27 Last Admin: 01/26/18 14:08 Dose: Not Given Magnesium Sulfate (Magnesium Sulfate 2 Gm In Water 50 Ml) Confirm Administered Dose 50 mls @ as directed .ROUTE .STK-MED ONE Stop: 01/26/18 13:27 Last Admin: 01/26/18 14:08 Dose: Not Given Magnesium Sulfate (Magnesium Sulfate 40 Gm In Water 1000 Ml) 40 gm in 1,000 mls @ 50 mls/hr IV ASDIRECTED [facility] Stop: 01/28/18 01:30 Last Infusion: 01/28/18 01:20 Dose: 25 mls/hr Magnesium Sulfate 4 gm/ Premix 100 mls @ 300 mls/hr IV ONETIME ONE Stop: 01/26/18 13:49 Last Admin: 01/26/18 13:44 Dose: 300 mls/hr Magnesium Sulfate 2 gm/ Premix 50 mls @ 300 mls/hr IV ONETIME ONE Stop: 01/26/18 13:39 Last Admin: 01/26/18 14:08 Dose: 300 mls/hr Ampicillin Sodium 2 gm/ Sodium (Chloride) 100 mls @ 200 mls/hr IV ONETIME ONE Stop: 01/26/18 16:40 Last Admin: 01/26/18 16:27 Dose: 200 mls/hr Ampicillin Sodium 1 gm/ Sodium (Chloride) 100 mls @ 200 mls/hr IV Q4H KONSTANTIN Last Admin: 01/27/18 00:01 Dose: 200 mls/hr Magnesium Sulfate (Magnesium Sulfate 40 Gm In Water 1000 Ml) 40 gm in 1,000 mls @ 25 mls/hr IV ASDIRECTED [facility] Labetalol HCl (Normodyne) 20 mg IVPUSH ONETIME ONE; Protocol Stop: 01/26/18 14:40 Last Admin: 01/26/18 14:49 Dose: 20 mg Lidocaine HCl (Lidocaine 1%) 4 ml .ROUTE .STK-MED ONE Stop: 01/26/18 22:01 Lidocaine/Epinephrine (Xylocaine-Mpf 1.5% W/Epinephrine 1:200,000) 5 ml .ROUTE .STK-MED ONE Stop: 01/26/18 22:01 Misoprostol (Cytotec) 25 mcg VAG Q4H PRN PRN Reason: cervical ripening Misoprostol (Cytotec) Confirm Administered Dose 25 mcg .ROUTE .STK-MED ONE Stop: 01/26/18 07:35 Last Admin: 01/26/18 11:27 Dose: 25 mcg Misoprostol (Cytotec) Confirm Administered Dose 25 mcg .ROUTE .STK-MED ONE Stop: 01/26/18 11:25 Last Admin: 01/26/18 13:18 Dose: Not Given Misoprostol (Cytotec) 25 mcg VAG Q4H PRN PRN Reason: cervical ripening Nalbuphine HCl (Nubain) 10 mg IVPUSH Q2H PRN PRN Reason: Pain (moderate 4-6) Ondansetron HCl (Zofran) 4 mg IVPUSH Q4H PRN PRN Reason: Nausea/Vomiting Sodium Chloride (Saline Flush) 10 ml FLUSH ASDIRECTED PRN PRN Reason: Keep Vein Open
== END 2018-01-28 18:15 | disposition home or self-care (01) | DRG 774 ==
LOC: JD.OB 01:55 → OBSVTOIN 01-27 01:55 → JD.OB 01-27 01:56
PROVIDERS: ADMIT Obstetrics & Gynecology; ATTEND Obstetrics & Gynecology
PROC: 00HU33Z Insertion of Infusion Device into Spinal Canal, Percutaneous Approach (ICD-10-PCS; 2018-01-26)
PROC: 3E0R3BZ Introduction of Anesthetic Agent into Spinal Canal, Percutaneous Approach (ICD-10-PCS; 2018-01-26)
PROC: 10E0XZZ Delivery of Products of Conception, External Approach (ICD-10-PCS; principal; 2018-01-27)
PROC: 10907ZC Drainage of Amniotic Fluid, Therapeutic from Products of Conception, Via Natural or Artificial Opening (ICD-10-PCS; 2018-01-27)
PROC: 3E0P7VZ Introduction of Hormone into Female Reproductive, Via Natural or Artificial Opening (ICD-10-PCS; 2018-01-27)
PROC: 3E033VJ Introduction of Other Hormone into Peripheral Vein, Percutaneous Approach (ICD-10-PCS; 2018-01-27)
PROC: 0U7C7ZZ Dilation of Cervix, Via Natural or Artificial Opening (ICD-10-PCS; 2018-01-27)
PROC: 6A550ZT Pheresis of Cord Blood Stem Cells, Single (ICD-10-PCS; 2018-01-27)
PROC: 10H07YZ Insertion of Other Device into Products of Conception, Via Natural or Artificial Opening (ICD-10-PCS; 2018-01-27)
DX: O14.14 Severe pre-eclampsia complicating childbirth (principal); O74.6 Other complications of spinal and epidural anesthesia during labor and delivery; Z37.0 Single live birth; O99.824 Streptococcus B carrier state complicating childbirth; O69.1XX0 Labor and delivery complicated by cord around neck, with compression, not applicable or unspecified; Z3A.37 37 weeks gestation of pregnancy; O99.334 Smoking (tobacco) complicating childbirth; F17.210 Nicotine dependence, cigarettes, uncomplicated; O26.53 Maternal hypotension syndrome, third trimester
CPT/HCPCS: 36415; 51702; 59025; 59200; 59409; 83735; 84450; 84460; 85027; 86592; 86850; 86900; 86901; A9270-GY; J0290; J2590; J3010; J3475; J3490; J7030; J7120